=== PATIENT | female | born 1970 | race Caucasian/White ===

== ENCOUNTER → 2017-05-29 | Outpatient (CLI) | payer OTHER ==
[~2017-05-29] MED LIST: ATV/1 PO; HYDR-3983 PO; METO25TA56 PO; PRLSR20 PO
--- NOTE | 2017-05-29 18:35 | DIAGNOSTIC IMAGING REPORT ---
THORACIC SPINE 5 VIEWS CLINICAL HISTORY: Left-sided thoracic back pain. FINDINGS: AP, lateral, bilateral oblique, and swimmer's views of the thoracic spine are correlated with CT scan of the thoracic spine dated 11/16/2015. The skeletal structures are well mineralized. There is no radiographic evidence of fracture or malalignment. Vertebral body height and alignment are maintained throughout the thoracic spine. Tiny anterior osteophytes are seen throughout. The transverse and spinous processes appear intact. The pedicles are maintained on the frontal view. The disc spaces appear preserved. The imaged lung parenchyma appears clear. IMPRESSION: No bony abnormality is seen involving the thoracic spine. Electronically signed by: Brock Macario M.D. 05/29/2017 6:34 PM Dictated Date/Time: 05/29/2017 6:30 PM
== END | disposition home or self-care (01) ==
LOC: C.RAD 16:02
PROVIDERS: ATTEND Physician Assistant
DX: R93.8 Abnormal findings on diagnostic imaging of other specified body structures (principal); M54.6 Pain in thoracic spine; G89.29 Other chronic pain

== ENCOUNTER 2017-07-17 17:12 | Emergency (ER) | payer OTHER ==
[~2017-07-17] VITALS: Ht 151.1 cm; Wt 76.1 kg
[2017-07-17 17:40] VITALS: BP 152/100; PULSE 99; TEMP 36.8; O2SAT 96; Ht 151.1 cm; Wt 76.1 kg
[2017-07-17] MEDS ORDERED: SODIUM CHLORIDE 0.9% 1000ML 1,000 ML IV STA (17:59)
--- NOTE | 2017-07-17 18:53 | DIAGNOSTIC IMAGING REPORT ---
CHEST 2 VIEWS ROUTINE CLINICAL HISTORY: cough, fever COMPARISON STUDY: 05/21/2016 FINDINGS: The cardiac and mediastinal contours are normal. There is no evidence of focal pulmonary consolidation. There is no evidence of failure. No pleural effusions are visualized.[ IMPRESSION: No active disease in the chest. Electronically signed by: Guille Pinto M.D. 07/17/2017 6:52 PM Dictated Date/Time: 07/17/2017 6:51 PM
[2017-07-17 19:05] LABS: BASO % 0.2 %; BASO ABS # 0.02 K/uL (0-0.2); EOS % 0.8 %; EOS ABS # 0.07 K/uL (0-0.5); HEMATOCRIT 44.7 % (37-47); HEMOGLOBIN 15.3 g/dL (12.0-16.0); IG# 0.04 K/uL (0.00-0.02); LYMPH % 21.2 %; LYMPH ABS # 1.94 K/uL (1.2-3.4); MEAN CELL VOLUME 93.9 fL (80-100); MEAN CORPUSCULAR HEMOGLOBIN 32.1 pg (25-34); MEAN CORPUSCULAR HGB CONC 34.2 g/dl (32-36); MEAN PLATELET VOLUME 10.3 fL (7.4-10.4); MONO % 9.1 %; MONO ABS # 0.83 K/uL (0.11-0.59); NEUT % 68.3 %; NEUT ABS # 6.24 K/uL (1.4-6.5); PLATELET COUNT 230 K/uL (130-400); RED CELL DISTRIBUTION WIDTH CV 13.9 % (11.5-14.5); RED CELL DISTRIBUTION WIDTH SD 47.9 fL (36.4-46.3); WHITE BLOOD COUNT 9.14 K/uL (4.8-10.8)
[2017-07-17 19:22] LABS: CALCIUM 8.7 mg/dl (8.5-10.1); CREATININE 1.15 mg/dl (0.60-1.20); POTASSIUM 3.8 mmol/L (3.5-5.1)
[2017-07-17] MEDS ORDERED: IBUP-1050 PO (19:22)
[2017-07-17] MEDS ORDERED: ONDA-63 PO (19:28)
[2017-07-17] MEDS ORDERED: MTR500 PO (19:28)
[2017-07-17] MEDS ORDERED: TPRSR/25 PO (19:28)
[2017-07-17] MEDS ORDERED: RANI300T PO (19:28)
[2017-07-17 19:40] LABS: INFLUENZA B ANTIGEN Neg for Influ B (NEG)
[2017-07-17] MEDS ORDERED: DEXAMETHASONE **PF** INJ 10 MG/ML VIAL IV STA (19:45)
[2017-07-17] MEDS ORDERED: METH4PAK PO (19:50)
--- NOTE | 2017-07-17 19:51 | EMERGENCY ROOM VISIT NOTE ---
ED Visit Note First contact with patient: 17:47 CHIEF COMPLAINT: Earache, upper respiratory infection symptoms HISTORY OF PRESENT ILLNESS: This 47-year-old female patient presents to the emergency department ambulatory, complaining of URI symptoms x 1 month. She was seen by her primary care provider last week and started on azithromycin. She states at that time, she did have some diarrhea and abdominal pain associated with a 2 week long period, so he was also treated with metronidazole. The patient states they have been experiencing congestion, runny nose, sore throat, cough, chills, otalgia, and swollen lymph nodes. She states she developed a cough 2 days ago. They deny any other symptoms including fever, headache, neck stiffness, nausea, or vomiting. There is pain with swallowing due to the sore throat. The patient states in the past, she has been treated with antibiotics and steroids to help with swelling in the occipital lymph nodes, as she has a history of chronic neck pain and seems to get significantly worsening pain and swelling in this area when she gets sick. She states she was not given steroids this time. The patient describes the drainage from the nose as clear and runny. There is no sinus pressure or pain. The patient has taken [place], Tylenol, Motrin, and antibiotics as prescribed with mild to moderate relief of symptoms. The patient does not recall any known exposure to strep throat. The patient does have a history of sinus infections. Denies a rash. She states she was working this evening, when she was not feeling well and noticed some mild tachycardia and hypertension. 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 REVIEW OF SYSTEMS: A 10 system review of systems was performed with positives and pertinent negatives listed in the history of present illness. All other systems were reviewed and are negative. ALLERGIES: Augmentin MEDICATIONS: Metronidazole, azithromycin, [place], Ativan, metoprolol, Zantac PMH: Hypertension, anxiety, chronic pain SOCIAL HISTORY: The patient lives locally with family. She denies drug, alcohol , tobacco use. PHYSICAL EXAM: VITALS: Vitals are noted on the nurse's note and reviewed by myself. Vital signs stable. GENERAL: This is a 47-year-old white female, in no acute distress, nondiaphoretic, well-developed well-nourished. SKIN: The skin was without rashes, erythema, edema, or bruising. There is no tenting of the skin. Capillary reflex less than 2 seconds. HEAD: Normocephalic atraumatic. EARS: External auditory canals clear, bilateral tympanic membranes pearly ni without erythema or effusion bilaterally. EYES: Pupils equal round and reactive to light and accommodation. Conjunctivae without injection, sclerae without icterus. Extraocular movements intact. NOSE: Patent, turbinates without inflammation or erythema. No rhinorrhea noted. No sinus tenderness. MOUTH: Mucous membranes moist. Tonsils are not enlarged. Pharynx without erythema or exudate. Uvula midline. Airway patent. Tongue does not deviate. NECK: Supple without nuchal rigidity. Mild to moderate lymphadenopathy. No thyromegaly. Cervical spine is nontender. No JVD. HEART: Regular rate and rhythm without murmurs gallops or rubs. LUNGS: Clear to auscultation bilaterally without wheezes, rales or rhonchi. No dullness to percussion. No retractions or accessory muscle use. MUSCULOSKELETAL: No muscle atrophy, erythema, or edema noted. Full range of motion without joint tenderness in all extremities. No tenderness to palpation. Normal gait. Strength 5/5 throughout. NEURO: Patient was alert and oriented to person place and time. Normal sensation to light and sharp touch. No focal neurological deficits. EMERGENCY DEPARTMENT COURSE: The patient was seen and evaluated as above. Laboratory testing was negative for acute obvious infection. Chest x-ray was reviewed by myself and radiologist as above with no signs of pneumonia. Urinalysis does not show any signs of infection. Influenza testing was negative. The patient does have some mild to moderate lymphadenopathy. She was recently treated with antibiotics. She has responded well with similar symptoms in the past to steroids. She was given a dose of Decadron while here in the emergency department and discharged with a prescription for Medrol Dosepak. She is encouraged to follow-up later this week outpatient with her primary care provider for reevaluation. Discharge instructions reviewed, and the patient was discharged home in good condition. I attest that I have personally reviewed the patient's current medication list. Blood Pressure Screening: Patient was found to have a slightly elevated blood pressure due to circumstances. I do not believe that the patient requires hypertension monitoring. DIFFERENTIAL DIAGNOSIS: Influenza, bronchitis, pneumonia, acute Sinusitis, Acute pharyngitis, URI, Viral pharyngitis, Strep Pharyngitis, otitis media, otitis externa, peritonsillar abscess, tonsilitis, malignancy, and others DIAGNOSIS: Upper respiratory infection, lymphadenopathy Problem List Medical Problems: (1) Anxiety Status: Chronic (2) Cervicalgia Status: Chronic (3) Chest pain Status: Resolved (4) Failure of outpatient treatment Status: Resolved (5) Headache Status: Resolved (6) Headache Status: Resolved (7) HTN (hypertension) Status: Chronic (8) Migraines Status: Chronic (9) Neck pain Status: Resolved Surgical Problems: (1) H/O: Status: Resolved Current/Historical Medications Scheduled Methylprednisolone (Medrol Dosepak), 0 PO DAILY Metoprolol Succinate (Metoprolol Succinate ER), 25 MG PO DAILY Metronidazole (Metronidazole), 500 MG PO BID Omeprazole (Prilosec), 20 MG PO DAILY Ranitidine Hcl (Zantac), 300 MG PO DAILY Scheduled PRN Hydrocodone/Acetaminophen 7.5MG/325MG ([place] 7.5MG/325MG), 1 TAB PO DAILY PRN for Pain Ibuprofen (Advil), 800 MG PO DAILY PRN for Pain Lorazepam (Ativan), 0.5-1 MG PO DAILY PRN for Anxiety Ondansetron (Ondansetron HCl), 8 MG PO Q8 PRN for Nausea or Vomiting Allergies Coded Allergies: Moxifloxacin (Verified Allergy, Intermediate, SHAKE, INCREASED HR, 07/17/17 ) Clavulanic Acid (Verified Adverse Reaction, Mild, SICK, 07/17/17) Vital Signs Date Time Temp Pulse Resp B/P (MAP) Pulse Ox O2 Delivery O2 Flow Rate FiO2 07/17/17 17:40 36.8 99 20 152/100 96 Room Air Laboratory Results 07/17/17 18:27 Red Blood Count 4.76, Mean Corpuscular Volume 93.9, Mean Corpuscular Hemoglobin 32.1, Mean Corpuscular Hemoglobin Concent 34.2, Mean Platelet Volume 10.3, Neutrophils (%) (Auto) 68.3, Lymphocytes (%) (Auto) 21.2, Monocytes (%) (Auto) 9.1, Eosinophils (%) (Auto) 0.8, Basophils (%) (Auto) 0.2, Neutrophils # (Auto) 6.24, Lymphocytes # (Auto) 1.94, Monocytes # (Auto) 0.83, Eosinophils # (Auto) 0.07, Basophils # (Auto) 0.02 07/17/17 18:27 Test 07/17/17 18:27 07/17/17 18:30 White Blood Count 9.14 K/uL (4.8-10.8) Red Blood Count 4.76 M/uL (4.2-5.4) Hemoglobin 15.3 g/dL (12.0-16.0) Hematocrit 44.7 % (37-47) Mean Corpuscular Volume 93.9 fL (80-100) Mean Corpuscular Hemoglobin 32.1 pg (25-34) Mean Corpuscular Hemoglobin Concent 34.2 g/dl (32-36) Platelet Count 230 K/uL (130-400) Mean Platelet Volume 10.3 fL (7.4-10.4) Neutrophils (%) (Auto) 68.3 % Lymphocytes (%) (Auto) 21.2 % Monocytes (%) (Auto) 9.1 % Eosinophils (%) (Auto) 0.8 % Basophils (%) (Auto) 0.2 % Neutrophils # (Auto) 6.24 K/uL (1.4-6.5) Lymphocytes # (Auto) 1.94 K/uL (1.2-3.4) Monocytes # (Auto) 0.83 K/uL (0.11-0.59) Eosinophils # (Auto) 0.07 K/uL (0-0.5) Basophils # (Auto) 0.02 K/uL (0-0.2) RDW Standard Deviation 47.9 fL (36.4-46.3) RDW Coefficient of Variation 13.9 % (11.5-14.5) Immature Granulocyte % (Auto) 0.4 % Immature Granulocyte # (Auto) 0.04 K/uL (0.00-0.02) Anion Gap 9.0 mmol/L (3-11) Est Creatinine Clear Calc Drug Dose 55.0 ml/min Estimated GFR () 66.1 Estimated GFR (Non- 57.0 BUN/Creatinine Ratio 7.4 (10-20) Calcium Level 8.7 mg/dl (8.5-10.1) Urine Color YELLOW Urine Appearance CLEAR (CLEAR) Urine pH 5.5 (4.5-7.5) Urine Specific [place] 1.003 (1.000-1.030) Urine Protein NEG (NEG) Urine Glucose (UA) NEG (NEG) Urine Ketones NEG (NEG) Urine Occult Blood NEG (NEG) Urine Nitrite NEG (NEG) Urine Bilirubin NEG (NEG) Urine Urobilinogen NEG (NEG) Urine Leukocyte Esterase NEG (NEG) Urine Test NEG (NEG) Influenza Type A Antigen Neg for Influ A (NEG) Influenza Type B Antigen Neg for Influ B (NEG) Medications Administered Medications (Trade) Dose Ordered Sig/Los Route Start Time Stop Time Status Last Admin Dose Admin Sodium Chloride 1,000 ml @ 999 mls/hr Q1H1M STAT IV 07/17/17 17:59 07/17/17 18:59 DC 07/17/17 18:34 999 MLS/HR Departure Information Impression Primary Impression: URI (upper respiratory infection) Additional Impression: Lymphadenopathy Dispostion Home / Self-Care Condition GOOD Prescriptions Methylprednisolone (MEDROL DOSEPAK) 4 Mg Levi 0 PO DAILY, #1 PKT Prov: Nichole Hassan PA-C 07/17/17 Referrals Rito Massey M.D. (PCP) Patient Instructions ED Upper Resp Infec No Abx Tx, Lymphadenopathy, My [facility] Additional Instructions You were seen and evaluated in the emergency department today for an upper respiratory infection. I do feel that based on your symptoms, and the duration of illness, this is likely viral in nature. As discussed, antibiotics will not treat viral illness. You have been prescribed a Medrol Dosepak. This is a steroid which will help decrease your inflammation, redness, and itch. Take the medicine as prescribed. Take the ENTIRE 6 day course of the steroids. Do not take any NSAIDs while on this medication. For your sore throat, you may use a 1:1 mixture of liquid Benadryl and liquid Maalox. Gargle and spit this mixture. It will help to soothe the throat and provide some relief. Drink warm tea with honey and lemon, as this will also help to soothe the throat. Gargle with salt water frequently. As discussed, you should take OTC Mucinex and/or Sudafed for your symptoms. Please do not exceed the recommended daily dosages. Ibuprofen(Motrin, Advil) may be used for fever or pain. Use 600mg every six hours as needed. Take with food. Avoid using more than 2400mg in a 24 hour period. Do not use 2400mg per day for more than three consecutive days without physician direction. Prolonged inappropriate use can lead to stomach upset or ulcers. Do not take this medication while taking steroids. Do not use any other NSAIDs while taking this medication. (AND/OR) Acetaminophen(Tylenol) may be used for fever or pain. Use 1000mg every six hours as needed. Avoid using more than 3000mg in a 24 hour period. *Alternate these medications every 3-4 hours for increased fever control. For congestion, you may use Flonase OTC. You may want to consider zinc, echinacea, and vitamin C to help boost your immunity. Please get plenty of rest and drink plenty of fluids. Please return or follow-up with your PCP in 1 week if you are not experiencing any improvement in your symptoms. Return to the emergency department for coughing up blood, difficulty breathing, chest pain, worsening symptoms, or for other concerns. Work Instructions Return To Work: 2 days Problem Qualifiers Primary Impression: URI (upper respiratory infection) URI type: unspecified URI Qualified Codes: J06.9 - Acute upper respiratory infection, unspecified
== END 2017-07-17 20:06 | disposition home or self-care (01) ==
LOC: C.EDB 17:14 → C.EDD 20:06
DX: J06.9 Acute upper respiratory infection, unspecified (principal); R59.0 Localized enlarged lymph nodes; I10 Essential (primary) hypertension; M54.2 Cervicalgia; G89.29 Other chronic pain; F41.9 Anxiety disorder, unspecified; Z88.0 Allergy status to penicillin; Z88.1 Allergy status to other antibiotic agents

== ENCOUNTER → 2017-12-07 | Outpatient (CLI) | payer OTHER ==
[~2017-12-07] MED LIST changes: +BUPR75TA8 PO; +IBUP-1050 PO; -METO25TA56 PO; +ONDA-63 PO; -PRLSR20 PO; +TPRSR/25 PO
== END | disposition home or self-care (01) ==
LOC: C.LAB 16:20
PROVIDERS: ATTEND Anesthesiology
DX: M79.1 Myalgia (principal)

== ENCOUNTER → 2017-12-28 | Outpatient (CLI) | payer OTHER ==
--- NOTE | 2017-12-28 12:21 | DIAGNOSTIC IMAGING REPORT ---
L RIBS UNILATERAL WITH PA CHEST CLINICAL HISTORY: 47 years-old Female presenting with PAIN. TECHNIQUE: Frontal and oblique views of the left ribs as well as PA view of the chest were obtained. COMPARISON: Chest x-ray from 10/17/2017. FINDINGS: Cardiomediastinal silhouette normal. Lungs and pleural spaces clear. Upper abdomen normal. No displaced left rib fracture. IMPRESSION: 1. No acute cardiopulmonary disease. 2. No displaced left rib fracture. Electronically signed by: Sidney Cohn M.D. 12/28/2017 12:19 PM Dictated Date/Time: 12/28/2017 12:18 PM
== END | disposition home or self-care (01) ==
LOC: C.RADBC 11:42
PROVIDERS: ATTEND Physician Assistant
DX: M54.6 Pain in thoracic spine (principal); R07.9 Chest pain, unspecified